=== PATIENT | male | born 1950 | race Caucasian/White ===

== ENCOUNTER → 2016-05-07 | Outpatient (CLI) | payer OTHER ==
--- NOTE | 2016-05-07 09:38 | DX ---
Right Knee, 3 Views 8:44 a.m. Indication: Right total knee arthroplasty.. Technique: AP, lateral, and Merchant views. Comparison: Right knee series dated March 25, 2016 Findings: The components of the right total knee arthroplasty are well seated. No perihilar hardware fracture or lucency. Moderate effusion persists. Impression: 1. Moderate effusion. 2. Well seated total knee arthroplasty.
== END ==
LOC: BMCIMAGING 08:40
PROVIDERS: ATTEND Orthopaedic Surgery
DX: Z96.651 Presence of right artificial knee joint (principal); M25.461 Effusion, right knee

== ENCOUNTER → 2016-08-06 | Outpatient (CLI) | payer OTHER | LOC: BMCIMAGING 08:46 | PROVIDERS: ATTEND Orthopaedic Surgery | DX: Z96.641 Presence of right artificial hip joint (principal) ==

== ENCOUNTER → 2017-03-04 | Outpatient (CLI) | payer OTHER | LOC: BMCIMAGING 14:52 | PROVIDERS: ATTEND Orthopaedic Surgery | DX: Z47.1 Aftercare following joint replacement surgery (principal); M17.12 Unilateral primary osteoarthritis, left knee; Z96.651 Presence of right artificial knee joint ==